=== PATIENT | male | born 1935 | race Caucasian/White ===

== ENCOUNTER 2021-06-04 16:53 | Inpatient (IN) | payer MEDICARE, SELFPAY ==
[2021-06-04 17:05] VITALS: BP 145/55; PULSE 117; RESP 16; TEMP 36.8; O2SAT 88; BMI 28.0
--- NOTE | 2021-06-04 17:16 | XRR_ITS ---
PROCEDURE INFORMATION: Exam: XR Chest Exam date and time: 06/04/2021 5:16 PM Age: 85 years old Clinical indication: Pain; Left-sided; Patient HX: Defibulator fired 04/26/2021 - has had cp since; Additional info: Chest pain TECHNIQUE: Imaging protocol: XR of the chest. Views: 1 view. COMPARISON: No relevant prior studies available. FINDINGS: Tubes, catheters and devices: Intact Single lead left subclavian pacemaker/defibrillator. Lungs: Consolidation in the left lung base with suspected elevation of the left diaphragm. The right lung is clear. Pleural spaces: Suspected left pleural effusion. No pneumothorax. Heart/Mediastinum: Unremarkable. No cardiomegaly. Bones/joints: Unremarkable. XR/XR chest 1V portable [id number] IMPRESSION: 1. Consolidation in the left lung base with possible pleural effusion. This could represent atelectasis or pneumonia.
--- NOTE | 2021-06-04 17:39 | ED_ITS ---
Documented by User: Jeancarlos Yang DO 06/05/21 06:08 HPI - Chest Pain General: Chief Complaint: ER Hold Stated Complaint: CHEST PAIN Time Seen by Provider: 06/04/21 17:16 History of Present Illness: HPI narrative: 85-year-old male presents emergency room complaining of chest pain. He states that 1 week ago he was doing usual activities and he thought his defibrillator fired. He was not evaluated at that time. He continues to have left-sided chest pain that wraps around into his back. Is a history of COPD. Has had a bit of a cough but is nonproductive. He is also noted to have mild hypoxia but no fever. Is not previously Covid, he has been vaccinated. I see the patient biggest complaint seems to be short of breath he is conversationally dyspneic. His sats on room air 88% We will have while at rest. MD complaint: chest pain Onset (ago): week(s) (1) Timing of current episode: constant Onset: during rest Pain location: left chest Pain radiation: back Severity: moderate Quality: aching Relieving factors: nothing Exacerbating factors: nothing Associated symptoms: Reports dyspnea; Deny abdominal pain, diaphoresis, fever(s), leg edema, nausea, palpitations, sense of impending doom, syncope or vomiting Treatment prior to arrival: none Review of Systems Const: Denies: fever(s) or diaphoresis ENMT: Denies: throat pain, ear or mastoid pain, nasal discharge or nasal congestion Card: Denies: palpitations or syncope Resp: Reports: dyspnea and productive cough GI: Denies: abdominal pain, nausea or vomiting : Denies: flank pain, dysuria, urinary frequency or urinary urgency Skin/Breast: Denies: rash or pruritus [facility] ED PFSH: Medical History Cardiac arrest with ventricular fibrillation Chronic respiratory failure requiring use of nocturnal bilevel positive airway pressure (BPAP) by mask COPD (chronic obstructive pulmonary disease) Hypothyroidism Influenza A Pulmonary embolism Rib fracture Physical Exam Const: COMMON NORMALS: no acute distress GENERAL APPEARANCE: cooperative and comfortable ORIENTATION/CONSCIOUSNESS: Yes awake, Yes oriented to person, Yes oriented to place and Yes oriented to time HENMT: COMMON NORMALS: normocephalic, atraumatic and hearing grossly normal bilaterally HEAD & SCALP: normocephalic and atraumatic Neck/C-Spine: COMMON NORMALS: full ROM, no lymphadenopathy, supple and no JVD Resp: COMMON NORMALS: normal respiratory effort, No retractions, No use of acc essory muscles and clear to auscultation bilaterally AUSCULTATION: clear to auscultation bilaterally Cardio: COMMON NORMALS: no JVD, regular rate, regular rhythm and No murmurs present (Cardio) RATE: regular rate RHYTHM: regular rhythm GI: COMMON NORMALS: No hepatosplenomegaly present AUSCULTATION: Yes normoactive bowel sounds PALPATION: No Tenderness to palpation present (GI), No Guarding due to palpation present (GI) and Yes No hepatosplenomegaly present Extremity: COMMON NORMALS: normal to inspection, capillary refill normal, no clubbing, cyanosis or edema, no calf tenderness and no pedal edema Neuro: SENSORIUM/ORIENTATION: Yes oriented to person, Yes oriented to place and Yes oriented to time Skin: COMMON NORMALS: no rashes or lesions noted GENERAL SKIN EXAM: no rashes or lesions noted Course Vital Signs: Vital signs: Vital Signs Temperature 98.2 F 06/05/21 00:53 Pulse Rate 110 H 06/05/21 05:39 Respiratory Rate 20 H 06/05/21 05:15 Blood Pressure 119/53 06/05/21 05:15 Pulse Oximetry 91 06/05/21 05:39 MDM - Chest Pain MDM Narrative: Medical decision making narrative: Care turned over to Dr. Kiran at change of shift. See his note from diagnosis and disposition. Lab Data: Labs: Lab Results 06/04/21 06/04/21 06/04/21 Range/Units 17:54 17:54 17:54 WBC 19.6 H (4.0-10.0) 10^3/ uL RBC 3.97 L (4.1-5.3) 10^6/u L Hgb 11.7 (11.7-16.6) g/dL Hct 35.5 L (42.0-52.0) % MCV 89.4 (80-94) fl MCH 29.5 (28.0-34.0) pg MCHC 33.0 (30.0-36.0) g/dL RDW 13.9 (12.1-15.1) % Plt Count 346 (130-400) 10^3/c mm MPV 9.4 (7.4-10.4) fL Neut % (Auto) 80.2 % Lymph % (Auto) 11.8 % Payette % (Auto) 7.0 % Eos % (Auto) 0.1 % Baso % (Auto) 0.2 % Neut # (Auto) 15.71 H (1.8-7.7) 10^3/u L Lymph # (Auto) 2.3 (0.8-4.8) 10^3/u L Payette # (Auto) 1.4 H (0.2-0.9) 10^3/u L Eos # (Auto) 0.0 (0.0-0.8) 10^3/u L Baso # (Auto) 0.0 (0.0-0.1) 10^3/u L Nucleated RBC % (a uto) 0 % Nucleated RBCs # 0.0 /100WBC Specimen Type Sample Site ABG pH (7.35-7.45) ABG pCO2 (35-45) mmHg ABG pO2 (80.0-100.0) mmH g ABG HCO3 (22-26) mmol/L ABG O2 Saturation ABG Base Excess (-2.0-2.0) mmol/ L Gurinder Test A-a O2 Gradient (5-10) mmHg Hematocrit (42-52) % Hgb O2 Saturation (95-100) % Carboxyhemoglobin (0.4-20.1) %THgb Methemoglobin (0.4-1.5) % Total Hemoglobin (14-18) g/dL Ionized Calcium (1.1-1.4) mmol/L O2 Delivery Device O2 Liters/Min % FiO2 % Burner Operator ID Sodium 131 L (136-145) mmol/L Potassium 3.3 L (3.5-5.1) mmol/L Chloride 89 L (98-107) mmol/L Carbon Dioxide 30 H (22-29) mmol/L Anion Gap 15.3 (5-19) BUN 10 (8-23) mg/dL Creatinine 0.6 L (0.7-1.2) mg/dL GFR Calculation Not Reportable Glucose 99 (65-115) mg/dL Calculated Osmolal ity 271 L (285-295) mOsm/k g Lactic Acid (0.5-2.2) mmol/L Calcium 8.5 (8.5-10.5) mg/dL Total Bilirubin 0.8 (0.15-1.2) mg/dL AST 44 H (0-40) U/L ALT 72 H (0-41) U/L Alkaline Phosphata se 172 H (40-130) IU/L Troponin T Baselin e 12 (0-15) ng/L Troponin T 120 Min [place] (0-15) ng/L Delta Troponin T (0-10) ABS# Troponin T Hi Sens 6Hr (0-15) ng/L Troponin T Hi Sens 6Hr Delta (0-12) ng/L Total Protein 6.5 L (6.6-8.7) g/dL Albumin 3.0 L (3.5-5.2) g/dL Globulin 3.5 (1.3-4.6) g/dL Urine Color (Yellow) Urine Appearance (CLEAR) Urine pH (5-7) Ur Specific Gravit y (1.005-1.030) Urine Protein (Negative) Urine Glucose (UA) (Normal) Urine Ketones (Negative) Urine Blood (Negative) Urine Nitrate (Negative) Urine Bilirubin (Negative) Urine Urobilinogen (Negative) mg/dL Ur Leukocyte Mary ase (Negative) Urine RBC (0-2) /hpf Urine WBC (0-5) /hpf Ur Squamous Epith Cells (0-5) /hpf Amorphous Sediment Urine Bacteria (NONE) /hpf Urine Mucus /hpf SARS-CoV-2 Ag (Rap id) (Negative) 06/04/21 06/04/21 06/04/21 Range/Units 17:54 18:32 18:50 WBC (4.0-10.0) 10^3/ uL RBC (4.1-5.3) 10^6/u L Hgb (11.7-16.6) g/dL Hct (42.0-52.0) % MCV (80-94) fl MCH (28.0-34.0) pg MCHC (30.0-36.0) g/dL RDW (12.1-15.1) % Plt Count (130-400) 10^3/c mm MPV (7.4-10.4) fL Neut % (Auto) % Lymph % (Auto) % Payette % (Auto) % Eos % (Auto) % Baso % (Auto) % Neut # (Auto) (1.8-7.7) 10^3/u L Lymph # (Auto) (0.8-4.8) 10^3/u L Payette # (Auto) (0.2-0.9) 10^3/u L Eos # (Auto) (0.0-0.8) 10^3/u L Baso # (Auto) (0.0-0.1) 10^3/u L Nucleated RBC % (a uto) % Nucleated RBCs # /100WBC Specimen Type Arterial Sample Site Radial, right ABG pH 7.51 H (7.35-7.45) ABG pCO2 39.1 (35-45) mmHg ABG pO2 62.3 L (80.0-100.0) mmH g ABG HCO3 31.1 H (22-26) mmol/L ABG O2 Saturation 93.7 ABG Base Excess 7.5 H (-2.0-2.0) mmol/ L Gurinder Test Pos A-a O2 Gradient 15.2 H (5-10) mmHg Hematocrit 34.9 L (42-52) % Hgb O2 Saturation 92.3 L (95-100) % Carboxyhemoglobin 1.5 (0.4-20.1) %THgb Methemoglobin 0.0 L (0.4-1.5) % Total Hemoglobin 11.4 L (14-18) g/dL Ionized Calcium 1.1 (1.1-1.4) mmol/L O2 Delivery Device Nc O2 Liters/Min 3.0 % FiO2 32.0 % Burner Operator ID glc Sodium 132.0 (136-145) mmol/L Potassium 3.2 L (3.5-5.1) mmol/L Chloride (98-107) mmol/L Carbon Dioxide (22-29) mmol/L Anion Gap (5-19) BUN (8-23) mg/dL Creatinine (0.7-1.2) mg/dL GFR Calculation Glucose 107.0 (65-115) mg/dL Calculated Osmolal ity (285-295) mOsm/k g Lactic Acid 1.0 (0.5-2.2) mmol/L Calcium (8.5-10.5) mg/dL Total Bilirubin (0.15-1.2) mg/dL AST (0-40) U/L ALT (0-41) U/L Alkaline Phosphata se (40-130) IU/L Troponin T Baselin e (0-15) ng/L Troponin T 120 Min [place] (0-15) ng/L Delta Troponin T (0-10) ABS# Troponin T Hi Sens 6Hr (0-15) ng/L Troponin T Hi Sens 6Hr Delta (0-12) ng/L Total Protein (6.6-8.7) g/dL Albumin (3.5-5.2) g/dL Globulin (1.3-4.6) g/dL Urine Color (Yellow) Urine Appearance (CLEAR) Urine pH (5-7) Ur Specific Gravit y (1.005-1.030) Urine Protein (Negative) Urine Glucose (UA) (Normal) Urine Ketones (Negative) Urine Blood (Negative) Urine Nitrate (Negative) Urine Bilirubin (Negative) Urine Urobilinogen (Negative) mg/dL Ur Leukocyte Mary ase (Negative) Urine RBC (0-2) /hpf Urine WBC (0-5) /hpf Ur Squamous Epith Cells (0-5) /hpf Amorphous Sediment Urine Bacteria (NONE) /hpf Urine Mucus /hpf SARS-CoV-2 Ag (Rap id) Negative (Negative) 06/04/21 06/04/21 06/05/21 Range/Units 19:38 23:20 01:43 WBC (4.0-10.0) 10^3/ uL RBC (4.1-5.3) 10^6/u L Hgb (11.7-16.6) g/dL Hct (42.0-52.0) % MCV (80-94) fl MCH (28.0-34.0) pg MCHC (30.0-36.0) g/dL RDW (12.1-15.1) % Plt Count (130-400) 10^3/c mm MPV (7.4-10.4) fL Neut % (Auto) % Lymph % (Auto) % Payette % (Auto) % Eos % (Auto) % Baso % (Auto) % Neut # (Auto) (1.8-7.7) 10^3/u L Lymph # (Auto) (0.8-4.8) 10^3/u L Payette # (Auto) (0.2-0.9) 10^3/u L Eos # (Auto) (0.0-0.8) 10^3/u L Baso # (Auto) (0.0-0.1) 10^3/u L Nucleated RBC % (a uto) % Nucleated RBCs # /100WBC Specimen Type Sample Site ABG pH (7.35-7.45) ABG pCO2 (35-45) mmHg ABG pO2 (80.0-100.0) mmH g ABG HCO3 (22-26) mmol/L ABG O2 Saturation ABG Base Excess (-2.0-2.0) mmol/ L Gurinder Test A-a O2 Gradient (5-10) mmHg Hematocrit (42-52) % Hgb O2 Saturation (95-100) % Carboxyhemoglobin (0.4-20.1) %THgb Methemoglobin (0.4-1.5) % Total Hemoglobin (14-18) g/dL Ionized Calcium (1.1-1.4) mmol/L O2 Delivery Device O2 Liters/Min % FiO2 % Burner Operator ID Sodium (136-145) mmol/L Potassium (3.5-5.1) mmol/L Chloride (98-107) mmol/L Carbon Dioxide (22-29) mmol/L Anion Gap (5-19) BUN (8-23) mg/dL Creatinine (0.7-1.2) mg/dL GFR Calculation Glucose (65-115) mg/dL Calculated Osmolal ity (285-295) mOsm/k g Lactic Acid (0.5-2.2) mmol/L Calcium (8.5-10.5) mg/dL Total Bilirubin (0.15-1.2) mg/dL AST (0-40) U/L ALT (0-41) U/L Alkaline Phosphata se (40-130) IU/L Troponin T Baselin e (0-15) ng/L Troponin T 120 Min [place] 12.84 (0-15) ng/L Delta Troponin T 0.84 (0-10) ABS# Troponin T Hi Sens 6Hr 12.44 (0-15) ng/L Troponin T Hi Sens 6Hr Delta 0.44 (0-12) ng/L Total Protein (6.6-8.7) g/dL Albumin (3.5-5.2) g/dL Globulin (1.3-4.6) g/dL Urine Color Cindy (Yellow) Urine Appearance Clear (CLEAR) Urine pH 5 (5-7) Ur Specific Gravit y 1.015 (1.005-1.030) Urine Protein Trace (Negative) Urine Glucose (UA) Norm (Normal) Urine Ketones 1+ H (Negative) Urine Blood Neg (Negative) Urine Nitrate Negative (Negative) Urine Bilirubin 1+ H (Negative) Urine Urobilinogen 1 H (Negative) mg/dL Ur Leukocyte Mary ase Negative (Negative) Urine RBC 0-4 H (0-2) /hpf Urine WBC 0-4 H (0-5) /hpf Ur Squamous Epith Cells 0-4 H (0-5) /hpf Amorphous Sediment Not Reportable Urine Bacteria Trace (NONE) /hpf Urine Mucus Trace /hpf SARS-CoV-2 Ag (Rap id) (Negative) Discharge Plan Discharge Patient Disposition: Admitted As Inpatient Clinical Impression: Pneumonia Qualifiers: Pneumonia type: due to unspecified organism Laterality: left Lung location: lower lobe of lung Qualified Code(s): J18.9 - Pneumonia, unspecified organism Condition: Stable Coding Level of Care Code ED Management Rep for Chg Fwd Exam Comprehensive Documented by User: Aleks Kiran MD 06/04/21 19:43 HPI - Chest Pain General: Chief Complaint: ER Hold Stated Complaint: CHEST PAIN Time Seen by Provider: 06/04/21 17:16 PFSH ED PFSH: Medical History Cardiac arrest with ventricular fibrillation Chronic respiratory failure requiring use of nocturnal bilevel positive airway pressure (BPAP) by mask COPD (chronic obstructive pulmonary disease) Hypothyroidism Influenza A Pulmonary embolism Rib fracture Course Vital Signs: Vital signs: Vital Signs Temperature 98.2 F 06/05/21 00:53 Pulse Rate 110 H 06/05/21 05:39 Respiratory Rate 20 H 06/05/21 05:15 Blood Pressure 119/53 06/05/21 05:15 Pulse Oximetry 91 06/05/21 05:39 MDM - Chest Pain MDM Narrative: Medical decision making narrative: Patient presents here with likely pneumonia and pleural effusion to left lower lobe. He does have an elevated white count. Patient's blood pressure here has been normal he has no signs of septic shock. Blood cultures were obtained and patient started on IV antibiotics. I spoke to the hospitalist and will admit. Patient's Covid is negative. Lab Data: Labs: Lab Results 06/04/21 06/04/21 06/04/21 Range/Units 17:54 17:54 17:54 WBC 19.6 H (4.0-10.0) 10^3/ uL RBC 3.97 L (4.1-5.3) 10^6/u L Hgb 11.7 (11.7-16.6) g/dL Hct 35.5 L (42.0-52.0) % MCV 89.4 (80-94) fl MCH 29.5 (28.0-34.0) pg MCHC 33.0 (30.0-36.0) g/dL RDW 13.9 (12.1-15.1) % Plt Count 346 (130-400) 10^3/c mm MPV 9.4 (7.4-10.4) fL Neut % (Auto) 80.2 % Lymph % (Auto) 11.8 % Payette % (Auto) 7.0 % Eos % (Auto) 0.1 % Baso % (Auto) 0.2 % Neut # (Auto) 15.71 H (1.8-7.7) 10^3/u L Lymph # (Auto) 2.3 (0.8-4.8) 10^3/u L Payette # (Auto) 1.4 H (0.2-0.9) 10^3/u L Eos # (Auto) 0.0 (0.0-0.8) 10^3/u L Baso # (Auto) 0.0 (0.0-0.1) 10^3/u L Nucleated RBC % (a uto) 0 % Nucleated RBCs # 0.0 /100WBC Specimen Type Sample Site ABG pH (7.35-7.45) ABG pCO2 (35-45) mmHg ABG pO2 (80.0-100.0) mmH g ABG HCO3 (22-26) mmol/L ABG O2 Saturation ABG Base Excess (-2.0-2.0) mmol/ L Gurinder Test A-a O2 Gradient (5-10) mmHg Hematocrit (42-52) % Hgb O2 Saturation (95-100) % Carboxyhemoglobin (0.4-20.1) %THgb Methemoglobin (0.4-1.5) % Total Hemoglobin (14-18) g/dL Ionized Calcium (1.1-1.4) mmol/L O2 Delivery Device O2 Liters/Min % FiO2 % Burner Operator ID Sodium 131 L (136-145) mmol/L Potassium 3.3 L (3.5-5.1) mmol/L Chloride 89 L (98-107) mmol/L Carbon Dioxide 30 H (22-29) mmol/L Anion Gap 15.3 (5-19) BUN 10 (8-23) mg/dL Creatinine 0.6 L (0.7-1.2) mg/dL GFR Calculation Not Reportable Glucose 99 (65-115) mg/dL Calculated Osmolal ity 271 L (285-295) mOsm/k g Lactic Acid (0.5-2.2) mmol/L Calcium 8.5 (8.5-10.5) mg/dL Total Bilirubin 0.8 (0.15-1.2) mg/dL AST 44 H (0-40) U/L ALT 72 H (0-41) U/L Alkaline Phosphata se 172 H (40-130) IU/L Troponin T Baselin e 12 (0-15) ng/L Troponin T 120 Min [place] (0-15) ng/L Delta Troponin T (0-10) ABS# Troponin T Hi Sens 6Hr (0-15) ng/L Troponin T Hi Sens 6Hr Delta (0-12) ng/L Total Protein 6.5 L (6.6-8.7) g/dL Albumin 3.0 L (3.5-5.2) g/dL Globulin 3.5 (1.3-4.6) g/dL Urine Color (Yellow) Urine Appearance (CLEAR) Urine pH (5-7) Ur Specific Gravit y (1.005-1.030) Urine Protein (Negative) Urine Glucose (UA) (Normal) Urine Ketones (Negative) Urine Blood (Negative) Urine Nitrate (Negative) Urine Bilirubin (Negative) Urine Urobilinogen (Negative) mg/dL Ur Leukocyte Mary ase (Negative) Urine RBC (0-2) /hpf Urine WBC (0-5) /hpf Ur Squamous Epith Cells (0-5) /hpf Amorphous Sediment Urine Bacteria (NONE) /hpf Urine Mucus /hpf SARS-CoV-2 Ag (Rap id) (Negative) 06/04/21 06/04/21 06/04/21 Range/Units 17:54 18:32 18:50 WBC (4.0-10.0) 10^3/ uL RBC (4.1-5.3) 10^6/u L Hgb (11.7-16.6) g/dL Hct (42.0-52.0) % MCV (80-94) fl MCH (28.0-34.0) pg MCHC (30.0-36.0) g/dL RDW (12.1-15.1) % Plt Count (130-400) 10^3/c mm MPV (7.4-10.4) fL Neut % (Auto) % Lymph % (Auto) % Payette % (Auto) % Eos % (Auto) % Baso % (Auto) % Neut # (Auto) (1.8-7.7) 10^3/u L Lymph # (Auto) (0.8-4.8) 10^3/u L Payette # (Auto) (0.2-0.9) 10^3/u L Eos # (Auto) (0.0-0.8) 10^3/u L Baso # (Auto) (0.0-0.1) 10^3/u L Nucleated RBC % (a uto) % Nucleated RBCs # /100WBC Specimen Type Arterial Sample Site Radial, right ABG pH 7.51 H (7.35-7.45) ABG pCO2 39.1 (35-45) mmHg ABG pO2 62.3 L (80.0-100.0) mmH g ABG HCO3 31.1 H (22-26) mmol/L ABG O2 Saturation 93.7 ABG Base Excess 7.5 H (-2.0-2.0) mmol/ L Gurinder Test Pos A-a O2 Gradient 15.2 H (5-10) mmHg Hematocrit 34.9 L (42-52) % Hgb O2 Saturation 92.3 L (95-100) % Carboxyhemoglobin 1.5 (0.4-20.1) %THgb Methemoglobin 0.0 L (0.4-1.5) % Total Hemoglobin 11.4 L (14-18) g/dL Ionized Calcium 1.1 (1.1-1.4) mmol/L O2 Delivery Device Nc O2 Liters/Min 3.0 % FiO2 32.0 % Burner Operator ID glc Sodium 132.0 (136-145) mmol/L Potassium 3.2 L (3.5-5.1) mmol/L Chloride (98-107) mmol/L Carbon Dioxide (22-29) mmol/L Anion Gap (5-19) BUN (8-23) mg/dL Creatinine (0.7-1.2) mg/dL GFR Calculation Glucose 107.0 (65-115) mg/dL Calculated Osmolal ity (285-295) mOsm/k g Lactic Acid 1.0 (0.5-2.2) mmol/L Calcium (8.5-10.5) mg/dL Total Bilirubin (0.15-1.2) mg/dL AST (0-40) U/L ALT (0-41) U/L Alkaline Phosphata se (40-130) IU/L Troponin T Baselin e (0-15) ng/L Troponin T 120 Min [place] (0-15) ng/L Delta Troponin T (0-10) ABS# Troponin T Hi Sens 6Hr (0-15) ng/L Troponin T Hi Sens 6Hr Delta (0-12) ng/L Total Protein (6.6-8.7) g/dL Albumin (3.5-5.2) g/dL Globulin (1.3-4.6) g/dL Urine Color (Yellow) Urine Appearance (CLEAR) Urine pH (5-7) Ur Specific Gravit y (1.005-1.030) Urine Protein (Negative) Urine Glucose (UA) (Normal) Urine Ketones (Negative) Urine Blood (Negative) Urine Nitrate (Negative) Urine Bilirubin (Negative) Urine Urobilinogen (Negative) mg/dL Ur Leukocyte Mary ase (Negative) Urine RBC (0-2) /hpf Urine WBC (0-5) /hpf Ur Squamous Epith Cells (0-5) /hpf Amorphous Sediment Urine Bacteria (NONE) /hpf Urine Mucus /hpf SARS-CoV-2 Ag (Rap id) Negative (Negative) 06/04/21 06/04/21 06/05/21 Range/Units 19:38 23:20 01:43 WBC (4.0-10.0) 10^3/ uL RBC (4.1-5.3) 10^6/u L Hgb (11.7-16.6) g/dL Hct (42.0-52.0) % MCV (80-94) fl MCH (28.0-34.0) pg MCHC (30.0-36.0) g/dL RDW (12.1-15.1) % Plt Count (130-400) 10^3/c mm MPV (7.4-10.4) fL Neut % (Auto) % Lymph % (Auto) % Payette % (Auto) % Eos % (Auto) % Baso % (Auto) % Neut # (Auto) (1.8-7.7) 10^3/u L Lymph # (Auto) (0.8-4.8) 10^3/u L Payette # (Auto) (0.2-0.9) 10^3/u L Eos # (Auto) (0.0-0.8) 10^3/u L Baso # (Auto) (0.0-0.1) 10^3/u L Nucleated RBC % (a uto) % Nucleated RBCs # /100WBC Specimen Type Sample Site ABG pH (7.35-7.45) ABG pCO2 (35-45) mmHg ABG pO2 (80.0-100.0) mmH g ABG HCO3 (22-26) mmol/L ABG O2 Saturation ABG Base Excess (-2.0-2.0) mmol/ L Gurinder Test A-a O2 Gradient (5-10) mmHg Hematocrit (42-52) % Hgb O2 Saturation (95-100) % Carboxyhemoglobin (0.4-20.1) %THgb Methemoglobin (0.4-1.5) % Total Hemoglobin (14-18) g/dL Ionized Calcium (1.1-1.4) mmol/L O2 Delivery Device O2 Liters/Min % FiO2 % Burner Operator ID Sodium (136-145) mmol/L Potassium (3.5-5.1) mmol/L Chloride (98-107) mmol/L Carbon Dioxide (22-29) mmol/L Anion Gap (5-19) BUN (8-23) mg/dL Creatinine (0.7-1.2) mg/dL GFR Calculation Glucose (65-115) mg/dL Calculated Osmolal ity (285-295) mOsm/k g Lactic Acid (0.5-2.2) mmol/L Calcium (8.5-10.5) mg/dL Total Bilirubin (0.15-1.2) mg/dL AST (0-40) U/L ALT (0-41) U/L Alkaline Phosphata se (40-130) IU/L Troponin T Baselin e (0-15) ng/L Troponin T 120 Min [place] 12.84 (0-15) ng/L Delta Troponin T 0.84 (0-10) ABS# Troponin T Hi Sens 6Hr 12.44 (0-15) ng/L Troponin T Hi Sens 6Hr Delta 0.44 (0-12) ng/L Total Protein (6.6-8.7) g/dL Albumin (3.5-5.2) g/dL Globulin (1.3-4.6) g/dL Urine Color Cindy (Yellow) Urine Appearance Clear (CLEAR) Urine pH 5 (5-7) Ur Specific Gravit y 1.015 (1.005-1.030) Urine Protein Trace (Negative) Urine Glucose (UA) Norm (Normal) Urine Ketones 1+ H (Negative) Urine Blood Neg (Negative) Urine Nitrate Negative (Negative) Urine Bilirubin 1+ H (Negative) Urine Urobilinogen 1 H (Negative) mg/dL Ur Leukocyte Mary ase Negative (Negative) Urine RBC 0-4 H (0-2) /hpf Urine WBC 0-4 H (0-5) /hpf Ur Squamous Epith Cells 0-4 H (0-5) /hpf Amorphous Sediment Not Reportable Urine Bacteria Trace (NONE) /hpf Urine Mucus Trace /hpf SARS-CoV-2 Ag (Rap id) (Negative) Imaging Data^: CXR: Attestation: I personally reviewed and interpreted this imaging study as follows: Radiologist's impression: [address] [address] XRay Report Signed Patient: Kenneth Nino Unit #: [id number] : 1935 Age/Sex: 85 / M ADM Date: 06/04/21 Loc: ER Room/Bed: Attending Dr: Ordering Provider/Ordering MD: Jeancarlos Yang DO Date of Service: 06/04/21 Procedure(s): XR chest 1V portable [id number] Accession Number(s): [id number] Report Number: [id number] PROCEDURE INFORMATION: Exam: XR Chest Exam date and time: 06/04/2021 5:16 PM Age: 85 years old Clinical indication: Pain; Left-sided; Patient HX: Defibulator fired 04/26/2021 - has had cp since; Additional info: Chest pain TECHNIQUE: Imaging protocol: XR of the chest. Views: 1 view. COMPARISON: No relevant prior studies available. FINDINGS: Tubes, catheters and devices: Intact Single lead left subclavian pacemaker/defibrillator. Lungs: Consolidation in the left lung base with suspected elevation of the left diaphragm. The right lung is clear. Pleural spaces: Suspected left pleural effusion. No pneumothorax. Heart/Mediastinum: Unremarkable. No cardiomegaly. Bones/joints: Unremarkable. XR/XR chest 1V portable [id number] IMPRESSION: 1. Consolidation in the left lung base with possible pleural effusion. This could represent atelectasis or pneumonia. Dictated By: Tye Meyers Signed By: Tye Meyers Signed Date/Time: 06/04/211815 DD/ 14 Discharge Plan Discharge Patient Disposition: Admitted As Inpatient Clinical Impression: Pneumonia Qualifiers: Pneumonia type: due to unspecified organism Laterality: left Lung location: lower lobe of lung Qualified Code(s): J18.9 - Pneumonia, unspecified organism Condition: Stable Coding Level of Care Code ED Management Rep for [facility] Fwd Exam Comprehensive
[2021-06-04 17:45] VITALS: BP 118/67; PULSE 115; RESP 18; O2SAT 94
[2021-06-04 18:08] LABS: Basophils % 0.2 %; Eosinophils % 0.1 %; Hematocrit 35.5 % (42.0-52.0); Hemoglobin 11.7 g/dL (11.7-16.6); Lymphocytes # 2.3 10^3/uL (0.8-4.8); Lymphocytes % 11.8 %; Mean Corpuscular Hemoglobin 29.5 pg (28.0-34.0); Mean Corpuscular Volume 89.4 fl (80-94); Mean Platelet Volume 9.4 fL (7.4-10.4); Monocytes # 1.4 10^3/uL (0.2-0.9); Neutrophils # 15.71 10^3/uL (1.8-7.7); Neutrophils % 80.2 %; Nucleated Red Blood Cells % 0 %; Platelet Count 346 10^3/cmm (130-400); Red Blood Count 3.97 10^6/uL (4.1-5.3); Red Cell Distribution Width 13.9 % (12.1-15.1); White Blood Count 19.6 10^3/uL (4.0-10.0)
[2021-06-04 18:22] VITALS: BP 139/71; PULSE 113; RESP 18; O2SAT 94
[2021-06-04 18:29] LABS: Alanine Aminotransferase 72 U/L (0-41); Alkaline Phosphatase 172 IU/L (40-130); Anion Gap 15.3 (5-19); Aspartate Amino Transferase 44 U/L (0-40); Blood Urea Nitrogen 10 mg/dL (8-23); Calcium 8.5 mg/dL (8.5-10.5); Carbon Dioxide 30 mmol/L (22-29); Chloride 89 mmol/L (98-107); Globulin 3.5 g/dL (1.3-4.6); Glucose 99 mg/dL (65-115); Osmolality Calculated 271 mOsm/kg (285-295); Potassium 3.3 mmol/L (3.5-5.1); Sodium 131 mmol/L (136-145); Total Bilirubin 0.8 mg/dL (0.15-1.2); Total Protein 6.5 g/dL (6.6-8.7)
[2021-06-04 18:33] LABS: Troponin(5th) Baseline 12 ng/L (0-15)
[2021-06-04 18:55] LABS: ABG PCO2 39.1 mmHg (35-45); ABG PH Result 7.51 (7.35-7.45); Alveolar-Arterial Oxygen Gradi 15.2 mmHg (5-10); Arterial Blood Gas Hematocrit 34.9 % (42-52); Base Excess ABG 7.5 mmol/L (-2.0-2.0); Blood Gas Allen Test Pos; Blood Gas Operator Identificat glc; Blood Gas Sample Site Radial, right; Blood Gas Sample Type Arterial; Carboxyhemoglobin 1.5 %THgb (0.4-20.1); HCO3 ABG 31.1 mmol/L (22-26); HGB O2 Sat 92.3 % (95-100); Ionized Calcium Level - ABG 1.1 mmol/L (1.1-1.4); Oxygen Device NC; Oxygen Saturation ABG 93.7; PO2 ABG 62.3 mmHg (80.0-100.0); Potassium Level - ABG 3.2 mmol/L (3.5-5.0); Total Hemoglobin 11.4 g/dL (14-18)
[2021-06-04 18:56] LABS: SARS Covid-2 Antigen Negative (Negative)
--- NOTE | 2021-06-04 19:16 | ECG_ITS ---
[facility] Test Date: 2021-06-04 Pat Name: Kenneth Nino Department: Room: Gender: Male [employer]: : 1935 Requested By: Jeancarlos Corea Order Number: [id number] Angelica MD: Richard Aguirre M.D. Measurements Intervals [place] Rate: 114 P: 50 CT: 179 QRS: 21 QRSD: 82 T: 71 QT: 311 QTc: 430 Interpretive Statements SINUS TACHYCARDIA WITH OCCASIONAL SUPRAVENTRICULAR PREMATURE COMPLEXES NONSPECIFIC T-WAVE ABNORMALITY ABNORMAL RHYTHM ECG INTERPRETATION BASED ON A DEFAULT AGE OF 40 YEARS No previous ECG available for comparison Electronically Signed On 06-05-2021 20:43:21 CDT by Rcihard Aguirre M.D. [id number]
[2021-06-04] MEDS: cefTRIAXone 1,000 MG in sodium chloride 0.9% (plus) 50 ML 100 MG IV (19:40)
[2021-06-04] MEDS: azithromycin 500 MG in sodium chloride 0.9% 250 ML 250 MG IV (19:55)
[2021-06-04 20:26] LABS: Troponin 5 2HR 12.84 ng/L (0-15); Troponin 5 2HR Delta 0.84 ABS# (0-10)
--- NOTE | 2021-06-04 20:30 | CTR_ITS ---
PROCEDURE INFORMATION: Exam: CT Chest Without Contrast; Diagnostic Exam date and time: 06/04/2021 8:30 PM Age: 85 years old Clinical indication: Dyspnea and shortness of breath; Prior surgery; Surgery type: Defibrillator; Patient HX: SOB, dyspnea, and hypoxia. Abnormal cxr. ; Additional info: Left consolidation + pleural effusion, evaluate for empyema, any underlying mass TECHNIQUE: Imaging protocol: Diagnostic computed tomography of the chest without contrast. Radiation optimization: All CT scans at this facility use at least one of these dose optimization techniques: automated exposure control; mA and/or kV adjustment per patient size (includes targeted exams where dose is matched to clinical indication); or iterative reconstruction. COMPARISON: CR (CHEST, ) 06/04/2021 5:48 PM RADIATION DOSE METRICS: Total DLP (mGy-cm): 959.34 FINDINGS: Tubes, catheters and devices: Left single lead pacemaker. Lungs: Severe emphysema. Scattered interstitial scarring in the peripheral right lung. 6 mm sub solid nodule in the right middle lobe, image 46. Atelectasis in the posterior left upper lobe. Complete collapse of the left lower lobe. Pleural spaces: Large left pleural effusion. No pneumothorax. Heart: Coronary artery calcifications. The heart size is normal. Trace pericardial fluid. Aorta: Unremarkable. No aortic aneurysm. Lymph nodes: Unremarkable. No enlarged lymph nodes. Kidneys and ureters: Bilateral perinephric stranding is most likely chronic and physiologic. Bones/joints: Old left rib fractures. No acute fracture. Soft tissues: Unremarkable. CT/CT chest wo con [id number] IMPRESSION: 1. Large left pleural effusion. 2. Left lower lobe collapse is consistent with passive atelectasis. 3. Emphysema with scattered scarring. 4. 6 mm sub-solid right middle lobe nodule. Recommend CT Chest at 6-12 months to confirm persistence of the nodule, then CT Chest at 3 years and 5 years. (Reference: Corine) References: Corine Sanchez et al. Guidelines for Management of Incidental Pulmonary Nodules Detected on CT Images: From the Fleischner Society 2017. Radiology. 2017;284(1):228-243. Radiation Dose CTDIVOL = (mGy): DLP = 959.34 (mGy-cm)
--- NOTE | 2021-06-04 21:25 | P.HP_ITS ---
Providers/Chief Complaint Admitting Physician: Isidra Fleming MD Chief Complaint: CHEST PAIN History of Present Illness Kenneth Nino is a 85 year old male currently traveling in the area from [facility], presenting to the emergency room today with chief complaints of shortness of breath. Patient states that he has a history of COPD at baseline, uses BiPAP daily at nighttime, has some underlying dyspnea cough and sputum production at a baseline, however his shortness of breath is much worse since 1 week ago when he left [place]. Per his , patient had influenza A infection in the middle of April, which was treated at home with Tamiflu. Per , it is estimated that the dyspnea has been ongoing since his influenza infection. Patient also reports left-sided chest pain which appears to be pleuritic in nature, made much worse by coughing and taking deep breaths. Diagnostics in the ER show chest x-ray with left-sided pleural effusion. Follow-up CT of the chest for better visualization revealed a large left pleural effusion with underlying collapse of the left lower lobe. Any underlying consolidation or mass is unable to be visualized due to presence of fluid. Patient denies any worsening in his baseline failure sputum production. No history of hemoptysis. Denies any fever at home. He is noted to be audibly wheezing on exam today. Currently on supplemental oxygen at 2 L/min. He has noticed some bilateral lower extremity swelling over the past week. Patient and his made a road trip from [facility] to here last Tuesday (today is ). Past medical history is notable for history of PE 4 years ago, ventricular arrhythmia/V. fib arrest precipitated likely by PE 4 years ago, per [place] was ruled out at the time. He does not have a known past medical history of CAD or heart failure. Review of Systems General: Reports: 10 or more systems reviewed and unremarkable except in HPI and below Const: Denies: fever(s), chills or body aches Eyes: Denies: change in vision, blurry vision or photophobia ENMT: Reports: hoarseness; Denies: throat pain, enlarged tonsils, odynophagia or nasal congestion Card: Denies: chest pain, palpitations, irregular heart rhythm, edema, swelling of feet/ankles, lightheadedness, pre-syncope, dyspnea on exertion or orthopnea Resp: Denies: dyspnea, productive cough, non-productive cough, wheezing, stridor, pain on inspiration, change in phlegm color, hemoptysis or chest congestion GI: Denies: abdominal pain, nausea, vomiting, hematemesis, coffee ground emesis, dysphagia, heartburn, diarrhea, constipation, GI cramping, change in stool character, hematochezia or melena : Denies: flank pain, dysuria, urinary frequency, urinary urgency, urinary hesitancy or hematuria Musc: Denies: neck pain, back pain, extremity pain, joint swelling, joint warmth or deformity Neuro: Denies: headache(s), numbness in extremities, weakness in extremities, sensory changes, difficulty walking, frequent falls, dizziness, vertigo, behavio ral changes, Slurred speech present or seizure-like activity Psych: Denies: anxiety, depression, suicidal ideation or homicidal ideation Endo: Denies: polyuria, polydipsia, tired all the time, cold intolerance or hot flashes Shen/Lymph: Denies: easy bruising or easy bleeding Medications/Allergies Home Medications Medication Instructions Recorded Confirmed Last Taken Type aspirin 81 mg PO DAILY 06/04/21 06/04/21 06/04/21 History cholecalciferol (vitamin D3) 25 mcg PO DAILY 06/04/21 06/04/21 06/04/21 History [Vitamin D3] ferrous sulfate 325 mg PO DAILY 06/04/21 06/04/21 06/03/21 History finasteride 5 mg PO DAILY 06/04/21 06/04/21 06/04/21 History hydrochlorothiazide 12.5 mg PO DAILY 06/04/21 06/04/21 06/04/21 History levothyroxine 100 mcg PO DAILY 06/04/21 06/04/21 06/04/21 History magnesium 500 mg PO DAILY 06/04/21 06/04/21 06/04/21 History metoprolol tartrate 25 mg PO BID 06/04/21 06/04/21 06/04/21 History pillcbzf-uajygskvdAr-ezkfzkjoH 1 applic TOPICAL TID PRN 06/04/21 06/04/21 06/04/21 History [Triple Antibiotic] simvastatin 20 mg PO DAILY 06/04/21 06/04/21 06/03/21 History tamsulosin 0.4 mg PO DAILY 06/04/21 06/04/21 06/03/21 History umeclidinium-vilanterol [Anoro 1 ea INHALATION DAILY 06/04/21 06/04/21 06/03/21 History Ellipta] Allergies Allergy/AdvReac Type Severity Reaction Status Date / Time acetaminophen [From Vicodin] Allergy ADR-Confusi Verified 06/04/21 17:10 on hydrocodone [From Vicodin] Allergy ADR-Confusi Verified 06/04/21 17:10 on PFSH Acute PFSH: Medical History Cardiac arrest with ventricular fibrillation Chronic respiratory failure requiring use of nocturnal bilevel positive airway pressure (BPAP) by mask COPD (chronic obstructive pulmonary disease) Hypothyroidism Influenza A Pulmonary embolism Rib fracture Vitals/I&O/Wt Last Vital Signs Temp 98.2 F 06/04/21 17:05 Pulse 113 H 06/04/21 18:22 Resp 18 06/04/21 18:22 BP 139/71 06/04/21 18:22 Pulse Ox 94 06/04/21 18:22 06/04/21 06/04/21 06/04/21 06:59 14:59 22:59 Intake Total 300 / 300 Balance 300 / 300 Weight last 48 hrs Weight 86.183 kg Physical Exam Narrative: EXAM NARRATIVE: General: No acute distress, AO x3 HEENT: PERRLA, pupils bilaterally equal and reactive, pallors not present Chest: Reduced air entry to auscultation of the left infra axillary and infrascapular areas. Additional scattered wheezing bilaterally. CVS: S1-S2 regular, no murmurs, no tachycardia, no gallops, no rubs Abdomen: Soft, nontender, no organomegaly, bowel sounds present Neuro: No focal deficits, no facial deformity, AO x3, power 5/5 in all limbs Extremities: No gross edema cyanosis or clubbing noted at this time Data : 06/04/21 17:54 06/04/21 17:54 Micro: Microbiology 06/04/21 19:33 Blood Culture - Preliminary Blood SPECIMEN COLLECTED 06/04/21 19:38 Blood Culture - Preliminary Blood SPECIMEN COLLECTED A&P Assessment and plan (1) Pleural effusion: Status: Acute (2) Pneumonia: Status: Acute Qualifiers: Laterality: left Lung location: lower lobe of lung Pneumonia type: due to unspecified organism Qualified Code(s): J18.9 - Pneumonia, unspecified organism Additional A&P Information Patient with a past medical history of COPD and chronic BiPAP use presenting today worsening shortness of breath and pleuritic chest pain more acutely worsened over the past week. Diagnostics show large left pleural effusion with underlying left lower lobe lung collapse. Given recent history of influenza a infection, current leukocytosis of 19,000, concern for secondary bacterial infection and resulting pneumonia with pleural effusion. Started on treatment with ceftriaxone and azithromycin empirically. IR guided thoracentesis to obtain pleural fluid for analysis, cx and additionally removal of fluid for symptomatic relief. Check urine bacterial and Legionella antigen, MRSA PCR, COVID-19 PCR. Patient reports being vaccinated for COVID-19. Given recent long car trip, concern additionally for PE, will check D-dimer and if elevated pursue further diagnostics for pulmonary embolism. Echocardiogram to estimate EF, evaluate for right-sided heart failure DuoNeb scheduled nebulization in view of COPD. No current signs of COPD exacerbation, hold off on systemic steroids for now. Supplemental O2 to keep O2 sat 90 to 92%. DVT prophylaxis: Lovenox Full code Attestations Medical Necessity Statement*: Anticipate greater than 2 midnight admission for above defined care Coding Level of Care Code Acute [facility] Diagnoses Pleural effusion J90 Pneumonia J18.9 Laterality: left Lung location: lower lobe of lung Pneumonia type: due to unspecified organism
[2021-06-04 21:51] VITALS: BP 139/74; PULSE 117; RESP 20; O2SAT 89
--- NOTE | 2021-06-04 23:16 | ECG_ITS ---
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 Measurements Intervals Warren Rate: 117 P: 58 MO: 179 QRS: 37 QRSD: 86 T: 74 QT: 316 QTc: 442 Interpretive Statements SINUS TACHYCARDIA SEPTAL MYOCARDIAL INFARCTION , OF INDETERMINATE AGE [40+ ms Q WAVE IN V1/V2] Compared to ECG 06/04/2021 19:16:43 Myocardial infarct finding now present T-wave abnormality no longer present Electronically Signed On 06-05-2021 20:40:35 CDT by Richard Aguirre M.D. [email or web address]/store/NU/[id number] f
[2021-06-04 23:57] LABS: Troponin 5 6HR 12.44 ng/L (0-15); Troponin 5 6HR Delta 0.44 ng/L (0-12)
[2021-06-05] VITALS (14 sets, daily range): BP systolic 119–168; BP diastolic 53–113; PULSE 66–119; RESP 16–25; TEMP 36.8–37.1; O2SAT 88–96
[2021-06-05] MEDS: tamsulosin 0.4 mg Capsule PO ×2 (00:44→21:10)
[2021-06-05] MEDS: atorvastatin 40 mg Tablet 20 MG PO ×2 (00:44→21:09)
[2021-06-05] MEDS: metoprolol tartrate 25 mg Tablet PO ×3 (00:44→17:05)
[2021-06-05 02:09] LABS: Urine Appearance Clear (CLEAR); Urine Color Amber (Yellow)
[2021-06-05 02:10] LABS: Add Urine Culture? No; Add Urine Microscopic? YES; Bacteria Urine TRACE /hpf; Bilirubin Urine 1+ (Negative); Blood Urine Neg (Negative); Glucose Urine UA Norm (Normal); Ketones Urine 1+ (Negative); Leukocyte Esterase Urine Negative (Negative); Mucus Urine TRACE /hpf; Nitrate Urine Negative (Negative); Protein Urine Trace (Negative); RBC Urine 0-4 /hpf (0-2); Specific Gravity, Urine 1.015 (1.005-1.030); Squamous Epithelial Cell Urine 0-4 /hpf (0-5); Urobilinogen Urine 1 mg/dL (Negative); WBC Urine 0-4 /hpf (0-5); pH Urine 5 (5-7)
[2021-06-05 07:00] LABS: Alanine Aminotransferase 56 U/L (0-41); Albumin Level 2.5 g/dL (3.5-5.2); Alkaline Phosphatase 168 IU/L (40-130); Anion Gap 12.3 (5-19); Aspartate Amino Transferase 30 U/L (0-40); Blood Urea Nitrogen 9 mg/dL (8-23); Calcium 7.9 mg/dL (8.5-10.5); Carbon Dioxide 30 mmol/L (22-29); Chloride 92 mmol/L (98-107); Globulin 4.3 g/dL (1.3-4.6); Glucose 108 mg/dL (65-115); Osmolality Calculated 271 mOsm/kg (285-295); Potassium 3.3 mmol/L (3.5-5.1); Sodium 131 mmol/L (136-145); Total Bilirubin 0.6 mg/dL (0.15-1.2); Total Protein 6.8 g/dL (6.6-8.7)
[2021-06-05 07:04] LABS: D Dimer 6.41 ug/mIFEU (0-0.59)
[2021-06-05 07:12] LABS: Lactate Dehydrogenase 153 U/L (135-225)
[2021-06-05] MEDS: ipratropium-albuterol 3 mL Neb INHALATION ×2 (08:16→20:30)
--- NOTE | 2021-06-05 08:29 | CT_ITS ---
WS: [id number] CTA OF THE CHEST WITH PULMONARY EMBOLISM PROTOCOL TECHNIQUE: High-resolution contrast enhanced CTA of the chest with coronal and sagittal reformatted i mages with pulmonary embolism protocol. MIP images are also reviewed. CLINICAL INFORMATION: HYPOXIA COMPARISON: CT chest June 04, 2021 DLP: 616.[address] scans at [facility] use at least one of these dose optimization techniques: automated e xposure control; mA and/or kV adjustment per patient size (includes targeted exams where dose is matc hed to clinical indication); or iterative reconstruction. FINDINGS: Moderate chronic emphysematous changes. Moderate to large left pleural effusion with compressive atel ectasis in the left midlung and left lower lobe. Left lower lobe collapse. Right lung is well aerated . Subsegmental atelectasis right lower lobe with pleural thickening.6 millimeter noncalcified right m iddle lobe nodule Proximal main pulmonary arteries are normal. Normal segmental and subsegmental pulmonary arteries. No filling defects to indicate pulmonary embolus. Normal caliber thoracic aorta. Aortic calcification. Numerous peribronchial and anterior mediastinal lymph nodes largest measuring 10 mm likely reactive. Ankylosis thoracic spine. Adrenal glands are normal. Small esophageal hiatal hernia. CT/CT angio chest PE protcl [id number] IMPRESSION: 1. No evidence of pulmonary embolus. 2. Moderate to large left pleural effusion with compressive atelectasis in the left midlung and left lower lobe. This is unchanged since June 04, 2021 3. Right lung is well aerated. 4. Moderate chronic emphysematous changes. 5. A few prominent anterior mediastinal and peribronchial lymph nodes nonspec ific but likely reactive. 6. 6 millimeter noncalcified right middle lobe nodule. Recommend 6 month follo w-up.
[2021-06-05] MEDS: iohexol 350 mg/mL 100 mL Btl IV (09:16)
[2021-06-05 09:22] LABS: INR 1.19 (0.8-1.2)
[2021-06-05] MEDS: levothyroxine 100 mcg Tablet PO (11:14)
[2021-06-05] MEDS: finasteride 5 mg Tablet PO (11:15)
--- NOTE | 2021-06-05 14:30 | USCV_ITS ---
Kenneth Nino Age: 85 Gender: M : 1935 Exam Date: 06/05/2021 15:24 Ordering Phys: Isidra Fleming MD Technologist: Exam Location: [facility] [place] Indication: CHEST PAIN COPD BP: / HR: Rhythm: Sinus Technical Quality: Very technically difficult study MEASUREMENTS (Male / Female) Normal Values FINDINGS Left Ventricle Right Ventricle Right Atrium Left Atrium Mitral Valve Aortic Valve Tricuspid Valve Pulmonic Valve Pericardium Aorta CONCLUSIONS 1. There are no windows. 2. Cardiac structure and function cannot be assessed. 3. Cardiac MRI/MUGA Scan may be considered. Luana Hoyt MD (Electronically Signed) Final Date: 05 June 2021 21:29 S
--- NOTE | 2021-06-05 14:30 | US_ITS ---
WS: [id number] ULTRASOUND-GUIDED THORACENTESIS CLINICAL INFORMATION: left pleural effusion, possible pneumonia COMPARISON: None. PROCEDURE: Informed consent: The risks, benefits, and alternatives of the procedure were discussed with the rolando ent. Verbal and written consent was obtained. Timeout: A timeout was performed to confirm the correct patient, procedure, and site. Site: Left Preparation: A suitable skin site was identified. The patient was prepped and draped in usual sterile fashion. Lidocaine 1% was used for local anesthesia. Catheter: 4 Niuean One-Step catheter. Fluid Volume: 250 ml Color: Yellow Fluid sent to the laboratory for requested diagnostic tests. Complications: No pneumothorax on the portable radiograph. / thoracentesis [id number] IMPRESSION: 1. Uncomplicated ultrasound-guided left thoracentesis. 2. Pleural effusion is septated and loculated. 250 cc removed. 3. No pneumothorax on the portable radiograph.
--- NOTE | 2021-06-05 14:30 | USCV_ITS ---
Kenneth Nino Age: 85 Gender: M : 1935 Exam Date: 06/05/2021 15:16 Ordering Phys: Barbara Jennings MD Technologist: Exam Location: [facility] [place] Indication: SWELLING HISTORY: Lower extremity swelling. PROCEDURES: Venous duplex imaging was performed in bilateral lower extremities. The following venous structures were evaluated: common femoral vein, profunda vein, proximal portion of the greater saphenous vein, superficial femoral vein, and the popliteal vein. In addition, the posterior tibial and peroneal trunk were evaluated. FINDINGS: Normal 2-D Doppler and augmentation and compressibility throughout the lower extremity venous structures. Additional imaging through the proximal calf veins also reveals no thrombus. Limited evaluation of the greater saphenous vein is patent with no thrombus.. CONCLUSIONS No evidence of right lower extremity DVT. No evidence of left lower extremity DVT. Stew Veronica MD (Electronically Signed) Final Date: 05 June 2021 17:12 S
[2021-06-05 14:34] LABS: Coronavirus Test Green County Not Detected
--- NOTE | 2021-06-05 14:42 | XR_ITS ---
WS: [id number] CHEST XRAY TECHNIQUE: Portable chest. CLINICAL INFORMATION: Thoracentesis COMPARISON: June 04, 2021 FINDINGS: Heart: Cardiomegaly. Cardiac pacer. Lungs: Persistent left lower lobe consolidation with improved left pleural effusion. Compressive atel ectasis left lower lobe. Single lead cardiac pacer. Right lung is well aerated. No pneumothorax. Bones: Normal visualized bony structures. XR/XR chest 1V portable [id number] IMPRESSION: 1. Improved left pleural effusion post thoracentesis with persistent left lowe r lobe consolidation. 2. No pneumothorax. 3. Stable cardiomegaly. 4. Single lead cardiac pacer.
--- NOTE | 2021-06-05 14:43 | PC.NURSE ---
Timeout completed with patient at this time. Vital signs at this time 133/75, 108, 98.3, 90%.
--- NOTE | 2021-06-05 15:03 | PC.NURSE ---
Procedure completed at this time. 250 ml of yellow forth output noted. Vital signs 113/62, 103, 91%. Patient placed in supine position in bed at this time. No needs voiced or noted at this time.
[2021-06-05 15:31] LABS: Body Fluid WBC 51199 /uL; Monocytes # Body Fluid 4.609
--- NOTE | 2021-06-05 16:45 | PM.PN ---
Subjective Subjective: Interval history: Patient was seen and examined this morning, he is endorsing history of colon cancer status post colectomy with stoma Does not use oxygen at home He drove from [place] to [place] Vaccinated with messenger RNA Covid vaccine Patient is stating that he felt a shock while he was putting his fuel hose back in the pump he did not express any chest pain, shortness of breath no syncopal event and this is the reason he is in the hospital AICD interrogation has been requested Thoracentesis done today, CTA ruled out PE Vitals/I&O/Wt Last Vital Signs Temp 98.2 F 06/05/21 15:40 Pulse 106 H 06/05/21 15:40 Resp 20 H 06/05/21 15:40 BP 128/72 06/05/21 15:40 Pulse Ox 90 06/05/21 15:40 Weight last 48 hrs Weight 86.183 kg Physical Exam Narrative: EXAM NARRATIVE: Very pleasant cooperative male Was laying comfortably and was able to get up on his own and sit at the bedside Saturating well on 2 L nasal cannula Bilateral breath sounds diminished at the bases Variable S1-S2 No active signs of congestive heart failure Parastomal hernia with colostomy no output Nontender abdomen Bilateral lower extremity trace edema Patient is awake alert oriented x3 GCS 15 no neurological deficits Data : 06/04/21 17:54 06/05/21 06:19 Micro: Microbiology 06/05/21 14:50 Gram Stain - Final Pleural Fluid 06/05/21 01:43 Legionella Urinary Antigen - Final Urine,Voided Bacterial Antigens - Final 06/04/21 19:33 Blood Culture - Preliminary Blood SPECIMEN COLLECTED 06/04/21 19:38 Blood Culture - Preliminary Blood SPECIMEN COLLECTED A&P Assessment and plan (1) Hypoxia: Status: Acute (2) Pleural effusion: Status: Acute (3) Pneumonia: Status: Acute Qualifiers: Laterality: left Lung location: lower lobe of lung Pneumonia type: due to unspecified organism Qualified Code(s): J18.9 - Pneumonia, unspecified organism Additional A&P Information Acute on chronic hypoxia Has history of COPD chronic BiPAP use, recently was infected with influenza A Secondary to post fusion this seems secondary to CHF exacerbation with pleural effusion CT scan however is not showing dense consolidation but for now I would treat him for possible pneumonia with ceftriaxone and azithromycin We will follow up with pleural studies Will request MRSA nares Small esophageal hernia AICD for secondary prevention patient is stating that he had a cardiac arrest that required AICD Will get interrogation done during this hospitalization Pleural effusion status post thoracentesis 250 cc removed pleural effusion is septated and loculated no pneumothorax Patient is afebrile leukocytosis 19,000 Full code Cardiac diet DVT prophylaxis Lovenox Attestations Medical Necessity Statement*: Continue medical management Time Spent in Patient Care: less than 15 minutes Coding Level of Care Code 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
[2021-06-05] MEDS: cefTRIAXone 1,000 MG in sodium chloride 0.9% (plus) 50 ML 100 MG IV (17:05)
[2021-06-05 17:09] LABS: Albumin Body Fluid 2.1 g/dL; Amylase Body Fluid 25 U/L; Cholesterol Body Fluid 79 mg/dL (0-200); Fluid Alkaline Phos. 146 IU/L; Glucose Body Fluid < 2.0 mg/dL; Triglycerides Body Fluid 36 mg/dL (0-150)
[2021-06-05 17:10] LABS: Total Protein Pleural Fluid 4.3 g/dL; Uric Acid Body Fluid 3 mg/dL
[2021-06-05 17:46] LABS: LDH Body Fluid 1722 U/L
[2021-06-05 18:07] LABS: Apprearance, Body Fluid CLOUDY; Color, Body Fluid YELLOW; PATH Referral YES
[2021-06-05] MEDS: azithromycin 500 MG in sodium chloride 0.9% 250 ML 250 MG PO (21:08)
[2021-06-06] VITALS (10 sets, daily range): BP systolic 122–133; BP diastolic 64–70; PULSE 87–110; RESP 17–24; TEMP 36.6–37.1; O2SAT 90–114
[2021-06-06] MEDS: ipratropium-albuterol 3 mL Neb INHALATION ×3 (02:25→14:52)
[2021-06-06] MEDS: enoxaparin 40 mg/0.4 mL Syringe SUBCUT (05:10)
[2021-06-06 07:10] LABS: Basophils % 0.2 %; Eosinophils # 0.1 10^3/uL (0.0-0.8); Eosinophils % 0.8 %; Hematocrit 31.5 % (42.0-52.0); Hemoglobin 10.3 g/dL (11.7-16.6); Lymphocytes # 1.7 10^3/uL (0.8-4.8); Lymphocytes % 11.5 %; Mean Corpuscular HGB Conc 32.7 g/dL (30.0-36.0); Mean Corpuscular Hemoglobin 29.7 pg (28.0-34.0); Mean Corpuscular Volume 90.8 fl (80-94); Mean Platelet Volume 9.8 fL (7.4-10.4); Monocytes % 6.5 %; Neutrophils # 12.05 10^3/uL (1.8-7.7); Neutrophils % 80.4 %; Nucleated Red Blood Cells % 0 %; Platelet Count 383 10^3/cmm (130-400); Red Blood Count 3.47 10^6/uL (4.1-5.3); Red Cell Distribution Width 14.2 % (12.1-15.1)
[2021-06-06] MEDS: finasteride 5 mg Tablet PO (07:32)
[2021-06-06] MEDS: levothyroxine 100 mcg Tablet PO (07:32)
[2021-06-06] MEDS: aspirin 81 mg Chew Tablet PO (07:32)
[2021-06-06] MEDS: metoprolol tartrate 25 mg Tablet PO (07:32)
[2021-06-06] MEDS: pantoprazole DR 40 mg Tablet PO (07:32)
[2021-06-06 07:35] LABS: Alanine Aminotransferase 58 U/L (0-41); Albumin Level 2.6 g/dL (3.5-5.2); Alkaline Phosphatase 165 IU/L (40-130); Anion Gap 14.7 (5-19); Aspartate Amino Transferase 37 U/L (0-40); Blood Urea Nitrogen 10 mg/dL (8-23); Carbon Dioxide 29 mmol/L (22-29); Chloride 95 mmol/L (98-107); Globulin 3.7 g/dL (1.3-4.6); Glucose 102 mg/dL (65-115); Osmolality Calculated 279 mOsm/kg (285-295); Potassium 3.7 mmol/L (3.5-5.1); Sodium 135 mmol/L (136-145); Total Bilirubin 0.4 mg/dL (0.15-1.2); Total Protein 6.3 g/dL (6.6-8.7)
[2021-06-06 07:37] LABS: Procalcitonin 0.12 ng/mL (0-0.5)
--- NOTE | 2021-06-06 14:23 | P.DS_ITS ---
Discharge Providers Date of Admission: 06/05/21 12:05 Date of Discharge: June 06, 2021 Attending Provider at Admission: Isidra Fleming MD Attending Provider at Discharge: Barbara Jennings MD Diagnoses at Discharge Discharge Diagnosis (1) Hypoxia: Status: Acute (2) Pleural effusion: Status: Acute (3) Pneumonia: Status: Acute Qualifiers: Laterality: left Lung location: lower lobe of lung Pneumonia type: due to unspecified organism Qualified Code(s): J18.9 - Pneumonia, unspecified organism Reason for Visit Reason for Visit: CHEST PAIN Hospital Course Hospital Course History of Present Illness by Dr. Bernadette Cooper Ramandeep Nino is a 85 year old male currently traveling in the area from [facility], presenting to the emergency room today with chief complaints of shortness of breath. Patient states that he has a history of COPD at baseline, uses BiPAP daily at nighttime, has some underlying dyspnea cough and sputum production at a baseline, however his shortness of breath is much worse since 1 week ago when he left [place]. Per his , patient had influenza A infection in the middle of April, which was treated at home with Tamiflu. Per , it is estimated that the dyspnea has been ongoing since his influenza infection. Patient also reports left-sided chest pain which appears to be pleuritic in nature, made much worse by coughing and taking deep breaths. Diagnostics in the ER show chest x-ray with left-sided pleural effusion. Follow-up CT of the chest for better visualization revealed a large left pleural effusion with underlying collapse of the left lower lobe. Any underlying consolidation or mass is unable to be visualized due to presence of fluid. Patient denies any worsening in his baseline failure sputum production. No history of hemoptysis. Denies any fever at home. He is noted to be audibly wheezing on exam today. Currently on supplemental oxygen at 2 L/min. He has noticed some bilateral lower extremity swelling over the past week. Patient and his made a road trip from [facility] to here last Tuesday (today is ). Past medical history is notable for history of PE 4 years ago, ventricular arrhythmia/V. fib arrest precipitated likely by PE 4 years ago, per AL was ruled out at the time. He does not have a known past medical history of CAD or heart failure. Hospital course Patient was admitted for management of worsening shortness of breath which was secondary to left-sided pleural effusion, underwent left-sided thoracentesis & 250 cc were removed. Lights criteria consistent with exudative changes. This likely is related to pneumonia, Covid antigen PCR negative, he was started on ceftriaxone and azithromycin which improved his leukocytosis from 19,000 to 15,000. He remained afebrile. He did not require supplemental oxygen after thoracentesis. Urine antigens negative. Venous Dopplers negative for DVT. No evidence of PE, Nurses tried to get AICD/pacemaker interrogation however we were not able to generate report. I requested to call the company directly at helpline so they can fax us the report hopefully before the discharge. Patient is denying chest pain, syncopal events. Patient had high D-dimer, pleural fluid cytology is pending and malignancy has not been ruled out. This was conveyed to the patient and his . Their questions were answered to their satisfaction. Patient is planning to follow-up with his aerial hurricane hunter in [facility]. He will be discharged home with Augmentin 7-day course. Augmentin is chosen to cover anaerobes along strep pneumo. Patient and his both eager to leave hospital today to continue the journey they were instructed to go to nearby ER in case of worsening of shortness of breath or recurrence of fever. He will need another chest x-ray within 6 to 8 weeks to see resolution of pneumonia. Physical Exam Narrative: EXAM NARRATIVE: Very pleasant cooperative male Was laying comfortably and was able to get up on his own and sit at the bedside Saturating well on room air Bilateral breath sounds diminished at the bases Variable S1-S2 No active signs of congestive heart failure Parastomal hernia with colostomy no output Nontender abdomen Bilateral lower extremity trace edema Patient is awake alert oriented x3 GCS 15 no neurological deficits Discharge Data Data Completed and Pending: Completed Studies During Hospitalization Category Date Time Status CT angio chest PE protcl [id number] Stat Cat Scan 06/05/21 08:[address] chest wo con 7 1250 Routine Cat Scan 06/04/21 20:30 Completed XR chest 1V kaitlynn ble [id number] Routine Exams 06/05/21 14:42 Completed XR chest 1V [email or web address] ble [id number] Stat Exams 06/04/21 17:16 [place] [id number] Routin e Ultrasound 06/05/21 14:30 Completed CV. echo complete * [id number] Routine Ultrasound 06/05/21 14:30 Completed US thoracentesis [id number] Routine Ultrasound 06/05/21 14:30 Completed Pending at discharge Category Date Time Status Anaerobic Culture Routine Lab 06/05/21 14:50 Results Blood Culture Sta t Lab 06/04/21 19:33 Results Body Fluid Cultur e & GS Routine Lab 06/05/21 14:50 Results MRSA by PCR Sulaiman ne Lab 06/05/21 05:34 Uncollected Sputum Culture an d Gram Stain Ranjiti ne Lab 06/05/21 05:34 Uncollected Cytology [PTH] Ro utine Pth 06/05/21 14:50 Received Labs from last 24 hours 06/06/21 06/06/21 06/05/21 05:42 05:42 14:50 WBC 15.0 H RBC 3.47 L Hgb 10.3 L Hct 31.5 L MCV 90.8 MCH 29.7 MCHC 32.7 RDW 14.2 Plt Count 383 MPV 9.8 Neut % (Auto) 80.4 Lymph % (Auto) 11.5 [place] % (Auto) 6.5 Eos % (Auto) 0.8 Baso % (Auto) 0.2 Neut # (Auto) 12.05 H Lymph # (Auto) 1.7 [place] # (Auto) 1.0 H Eos # (Auto) 0.1 Baso # (Auto) 0.0 Nucleated RBC % (a uto) 0 Nucleated RBCs # 0.0 Differential Comme nt Yes Sodium 135 L Potassium 3.7 Chloride 95 L Carbon Dioxide 29 Anion Gap 14.7 BUN 10 Creatinine 0.5 L GFR Calculation Not Reportable Glucose 102 Calculated Osmolal ity 279 L Calcium 8.0 L Total Bilirubin 0.4 AST 37 ALT 58 H Alkaline Phosphata se 165 H Total Protein 6.3 L Albumin 2.6 L Globulin 3.7 Procalcitonin 0.12 Fluid Color Yellow Fluid Appearance Cloudy Fluid Specific Gra v 1.010 Fluid pH 8.0 Fluid WBC 33330 Fluid RBC 10.000 Fld Polynuclear WB Cs # 46.590 Fld Polynuclear WB Cs % 91.000 Fl Mononucl WBCs # (Auto) 4.609 Fl Mononuclear % A uto 9.000 Fluid Glucose < 2.0 Fluid Albumin 2.1 Fluid LDH 1722 Fluid Amylase 25 Fluid Alk Phosphat ase 146 Fluid Cholesterol 79 Fluid Triglyceride s 36 Fluid Uric Acid 3 Pleural Total Prot ein 4.3 Nasal/Oral COVID-1 9 PCR 06/04/21 18:28 WBC RBC Hgb Hct MCV MCH MCHC RDW Plt Count MPV Neut % (Auto) Lymph % (Auto) [place] % (Auto) Eos % (Auto) Baso % (Auto) Neut # (Auto) Lymph # (Auto) [place] # (Auto) Eos # (Auto) Baso # (Auto) Nucleated RBC % (a uto) Nucleated RBCs # Differential Comme nt Sodium Potassium Chloride Carbon Dioxide Anion Gap BUN Creatinine GFR Calculation Glucose Calculated Osmolal ity Calcium Total Bilirubin AST ALT Alkaline Phosphata se Total Protein Albumin Globulin Procalcitonin Fluid Color Fluid Appearance Fluid Specific Gra v Fluid pH Fluid WBC Fluid RBC Fld Polynuclear WB Cs # Fld Polynuclear WB Cs % Fl Mononucl WBCs # (Auto) Fl Mononuclear % A uto Fluid Glucose Fluid Albumin Fluid LDH Fluid Amylase Fluid Alk Phosphat ase Fluid Cholesterol Fluid Triglyceride s Fluid Uric Acid Pleural Total Prot ein Nasal/Oral COVID-1 9 PCR Not detected Addt'l Data from Hospital Stay: CT/CT angio chest PE protcl [id number] IMPRESSION: 1. No evidence of pulmonary embolus. 2. Moderate to large left pleural effusion with compressive atelectasis in the left midlung and left lower lobe. This is unchanged since June 04, 2021 3. Right lung is well aerated. 4. Moderate chronic emphysematous changes. 5. A few prominent anterior mediastinal and peribronchial lymph nodes nonspecific but likely reactive. 6. 6 millimeter noncalcified right middle lobe nodule. Recommend 6 month follow-up. After thoracentesis XR/XR chest 1V portable [id number] IMPRESSION: 1. Improved left pleural effusion post thoracentesis with persistent left lower lobe consolidation. 2. No pneumothorax. 3. Stable cardiomegaly. 4. Single lead cardiac pacer. Vitals: Last Vital Signs Temp 98.3 F 06/06/21 12:00 Pulse 105 H 06/06/21 12:00 Resp 18 06/06/21 12:00 BP 133/64 06/06/21 12:00 Pulse Ox 90 06/06/21 12:00 Discharge Plan Discharge Patient Disposition: Home Condition: Stable Prescriptions: New Augmentin 875-125 mg tablet 1 tab PO BID 7 Days Qty: 14 RF: 0 Continued magnesium 500 mg Tablet 500 mg PO DAILY RF: 0 levothyroxine 100 mcg tablet 100 mcg PO DAILY RF: 0 tamsulosin 0.4 mg capsule 0.4 mg PO DAILY RF: 0 simvastatin 20 mg tablet 20 mg PO DAILY RF: 0 ferrous sulfate 325 mg (65 mg iron) Tablet 325 mg PO DAILY RF: 0 aspirin 81 mg Tablet,Chewable 81 mg PO DAILY RF: 0 finasteride 5 mg tablet 5 mg PO DAILY RF: 0 metoprolol tartrate 25 mg tablet 25 mg PO BID RF: 0 Triple Antibiotic 3.5-400-5,000 [id number] Ointment In Packet 1 applic TOPICAL TID PRN (Reason: Penile Irritation) RF: 0 hydrochlorothiazide 12.5 mg tablet 12.5 mg PO DAILY RF: 0 Vitamin D3 25 mcg (1,000 unit) Tablet,Chewable 25 mcg PO DAILY RF: 0 Anoro Ellipta 62.5-25 mcg/actuation blister with device 1 ea INHALATION DAILY RF: 0 Discharge Orders: Discharge Order (Routine); Ordered 06/06/21 Ordered By: Barbara Jennings Discharge Diet: Cardiac Discharge Activity: Resume usual activity Patient Instructions: Amoxicillin/Clavulanate Potassium (By mouth), Pleural Effusion (GEN), Pneumonia (GEN), Opioid Safety Activity Restrictions/Additional Instructions: left Thoracentesis was done which showed exudative changes, 250 cc were removed, he had showed improvement in terms of her oxygenation, no fever in last 24 hours, your white count is also improving at the time of admission it was 19,000 at the day of discharge 15,000, you showing remarkable recovery however keep in mind loculated effusion needs to be looked at and you have agreed to follow-up with your aerial hurricane hunter back in [place]. Please take Augmentin for at least 7 days. In case of worsening of symptoms, recurrence of fever you will need to go to the nearest ER. Discharge Attestations Time Spent in Discharge Care*: less than 30 min Quality Metrics Clinical Quality Measures During this hospital stay, did patient experience: None Coding Level of Care Code Acute Chg FW DC note Diagnoses Hypoxia R09.02 Pleural effusion J90 Pneumonia J18.9 Laterality: left Lung location: lower lobe of lung Pneumonia type: due to unspecified organism
--- NOTE | 2021-06-08 12:27 | PC.SOCIAL ---
discharge follow up call made. spoke with pts . she has already made follow up appointment made with pcp, they [place]. patient and are wanting pathology reports from tissue that was taken while in the hospital. will follow up with this and get pt information they need.
== END 2021-06-06 15:26 | disposition home or self-care (01) | DRG 194 ==
LOC: ER 06-05 08:05 → MEDSURG 06-05 12:06
PROVIDERS: Family Medicine; Admitting Provider Student in an Organized Health Care Education/Training Program; Emergency Provider Emergency Medicine; Visit Provider Internal Medicine
DX: J18.9 Pneumonia, unspecified organism (principal); J44.0 Chronic obstructive pulmonary disease with (acute) lower respiratory infection; J90 Pleural effusion, not elsewhere classified; E03.9 Hypothyroidism, unspecified; D72.829 Elevated white blood cell count, unspecified; R09.02 Hypoxemia; Z85.038 Personal history of other malignant neoplasm of large intestine; Z90.49 Acquired absence of other specified parts of digestive tract; Z79.82 Long term (current) use of aspirin; Z86.711 Personal history of pulmonary embolism; Z20.822 Contact with and (suspected) exposure to COVID-19; Z79.890 Hormone replacement therapy
CPT/HCPCS: 32555; 36415; 36600; 71045; 71250; 71275; 80048; 80051; 80053; 80500; 81001; 82042; 82150; 82330; 82465; 82805; 82945; 83605; 83615; 83986; 84075; 84145; 84157; 84315; 84478; 84484; 84560; 85025; 85378; 85610; 86403; 87040; 87070; 87075; 87205; 87426; 87449; 87635; 88112; 88305; 89050; 93005; 93306; 93970; 94640; 94660; 96365; 96372; 99285; J0456; J0696; J1650; J7050; Q9967